=== PATIENT | female | born 1945 | race Caucasian/White ===

== ENCOUNTER 2017-04-18 19:15 | Emergency (ER) | payer MEDICARE ==
[2017-04-18 21:48] VITALS: BP 159/85
--- NOTE | 2017-04-18 22:23 | UC ---
Eye Complaint HPI - HPI Summary HPI Summary: 70 yo WF c/o B/L, extreme eyelid ithchiness, left>right since this AM. Denies new lotions makeup soaps foods or touching novel surfaces or allergies, has h/o eczema - History of Current Complaint Chief Complaint: UCEye Stated Complaint: EYE COMPLAINT Time Seen by Provider: 04/18/17 21:19 Hx Obtained From: Patient Onset/Duration: Sudden Onset Timing: Constant Severity Initially: Severe Pain Intensity: 0 Aggravating Factor(s): Nothing Alleviating Factor(s): Other - benadryl antiitch topical spray - Allergies/Home Medications Allergies/Adverse Reactions: Allergies Allergy/AdvReac Type Severity Reaction Status Date / Time clarithromycin [From Biaxin] Allergy Unknown Verified 04/18/17 19:43 Reaction Details morphine Allergy Nausea And Verified 04/18/17 19:43 Vomiting PMH/Surg Hx/FS Hx/Imm Hx - Additional Past Medical History Additional PMH: eczema Previously Healthy: Yes - Surgical History Surgical History: Yes Surgery Procedure, Year, and Place: 1994 & 2009 Bunion [facility] RT FOOT [facility]. 1987 knees (injury related). Tonsils. 1982 Tubal ligation [facility] - Social History Alcohol Use: Weekly Alcohol Amount: 2-3 GLASSES/WEEK Substance Use Type: None Smoking Status (MU): Never Smoked Tobacco Have You Smoked in the Last Year: No - Immunization History Most Recent Tetanus Shot: unknown Review of Systems Constitutional: Negative Skin: Negative Eyes: Other - eyelid itchiness and swelling on left>right ENT: Negative Respiratory: Negative Cardiovascular: Negative Gastrointestinal: Negative Genitourinary: Negative Motor: Negative Neurovascular: Negative Musculoskeletal: Negative Neurological: Negative Psychological: Negative Is Patient Immunocompromised?: No All Other Systems Reviewed And Are Negative: Yes Physical Exam Triage Information Reviewed: Yes Appearance: Well-Appearing Vital Signs: Initial Vital Signs Temp 36.8 C 04/18/17 19:40 Pulse 82 04/18/17 19:40 Resp 18 04/18/17 19:40 BP 165/91 04/18/17 19:40 Pulse Ox 98 04/18/17 19:40 Eye Exam: Normal Eyes: Positive: Other: - B/L left upper lid swellling > right with exquisite pruritis NO drainage or signs of infection ENT Exam: Normal Dental Exam: Normal Neck exam: Normal Neck: Positive: 1 Respiratory Exam: Normal Cardiovascular Exam: Normal Abdominal Exam: Normal Musculoskeletal Exam: Normal Neurological Exam: Normal Psychological Exam: Normal Skin Exam: Normal Eye Complaint Course/Dx - Course Course Of Treatment: B/L eyelid pruritis, advised allergy consult if sx persist - Differential Dx/Diagnosis Provider Diagnoses: eyelid pruritis Discharge - Discharge Plan Condition: Stable Disposition: HOME Prescriptions: Neomycin/Polymyxin B/Dexametha [Maxitrol] 1 oin OP Q8HR 7 Days #1 tube Patient Education Materials: Allergy Testing (ED) Referrals: Ernestina Moe NP [Primary Care Provider] - Additional Instructions: 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
== END 2017-04-18 22:28 | disposition home or self-care (01) ==
LOC: UCEAST 19:15
DX: L29.9 Pruritus, unspecified (principal)
CPT/HCPCS: 99212; G0463

== ENCOUNTER 2017-04-19 09:57 | Emergency (ER) | payer MEDICARE ==
[2017-04-19] MEDS ORDERED: methylPREDNISolone 125 MG* 2 ML VIAL IV ONE (12:46)
[2017-04-19] MEDS ORDERED: diPHENhydraMINE IV* 50 MG/ML 1 ml VIAL (BENADRYL) IV ONE (12:46)
[2017-04-19] MEDS ORDERED: PROCHLORPERAZINE INJ 5 MG/ML 2 ML VIAL IV ONE (12:46)
[2017-04-19] MEDS ORDERED: NS 0.9% 1000 ML* 1,000 ML IV ONE (12:46)
[2017-04-19] MEDS ORDERED: Ketorolac INJ* 30 MG/ML 1 ML VIAL IV PUSH ONE (12:56)
[2017-04-19 13:08] LABS: ABS Basophils 0 10^3/ul (0-0.2); ABS Eosinophils 0.1 10^3/ul (0-0.6); ABS Lymphocytes 1.2 10^3/ul (1.0-4.8); ABS Monocytes 0.4 10^3/ul (0-0.8); ABS Neutrophils 5.2 10^3/ul (1.5-7.7); ABS Nucleated RBC 0 10^3/ul; Eosinophil % 1.9 % (0-6); Hematocrit 47 % (35-47); Mean Corpuscular HGB Conc 35 g/dl (31-36); Mean Corpuscular Hemoglobin 31 pg (27-31); Mean Corpuscular Volume 90 fL (80-97); Mean Platelet Volume 8 um3 (7.4-10.4); Nucleated Red Blood Cells % 0; Platelet Count 222 10^3/ul (150-450); Red Blood Count 5.16 10^6/ul (4.0-5.4); Red Cell Distribution Width 14 % (10.5-15); White Blood Count 6.9 10^3/ul (3.5-10.8)
[2017-04-19 13:32] LABS: EGFR Non-African American 101.9 (>60)
--- NOTE | 2017-04-19 15:30 | ED ---
Skin Complaint - HPI Summary HPI Summary: Pt here w/ facial redness and swelling that started as a small area around Lt eye yesterday and has expanded across her face and into neck today. Pruritic. No known cause. No anaphylacytic sx/ - History of Current Complaint Chief Complaint: EDEyeProblem Time Seen by Provider: 04/19/17 11:08 Stated Complaint: EYE SWELLING Pain Intensity: 0 - Allergy/Home Medications Allergies/Adverse Reactions: Allergies Allergy/AdvReac Type Severity Reaction Status Date / Time clarithromycin [From Biaxin] Allergy Unknown Verified 04/18/17 19:43 Reaction Details morphine Allergy Nausea And Verified 04/18/17 19:43 Vomiting PMH/Surg Hx/FS Hx/Imm Hx Endocrine/Hematology History: Reports: Hx Anemia - TAKING IRON SUPPLEMENT DAILY FOR YEARS Denies: Hx Diabetes, Hx Thyroid Disease Cardiovascular History: Denies: Hx Hypertension, Hx Pacemaker/ICD Respiratory History: Denies: Hx Asthma, Hx Chronic Obstructive Pulmonary Disease (COPD) GI History: Denies: Hx Ulcer Musculoskeletal History: Reports: Hx Arthritis - RT WRIST,, Hx Osteoporosis Sensory History: Reports: Hx Contacts or Glasses - CONTACTS, WILL WEAR GLASSES DAY OF SURGERY Denies: Hx Hearing Aid Opthamlomology History: Reports: Hx Contacts or Glasses - CONTACTS, WILL WEAR GLASSES DAY OF SURGERY Psychiatric History: Denies: Hx Panic Disorder - Surgical History Surgery Procedure, Year, and Place: 1994 & 2009 Bunion [facility] RT FOOT [facility]. 1987 knees (injury related). Tonsils. 1982 Tubal ligation [place] Hx Anesthesia Reactions: No Infectious Disease History: No Infectious Disease History: Denies: Hx Clostridium Difficile, Hx Hepatitis, Hx Human Immunodeficiency Virus (HIV), Hx of Known/Suspected MRSA, Hx Shingles, Hx Tuberculosis, Traveled Outside the [place] in Last 30 Days - Social History Alcohol Use: Weekly Alcohol Amount: 2-3 GLASSES/WEEK Substance Use Type: Reports: None Smoking Status (MU): Never Smoked Tobacco Have You Smoked in the Last Year: No Physical Exam Vital Signs On Initial Exam: Initial Vitals Temp Pulse Resp BP Pulse Ox 97.9 F 84 18 120/81 100 04/19/17 09:58 04/19/17 09:58 04/19/17 09:58 04/19/17 09:58 04/19/17 09:58 Diagnostics - Vital Signs Vital Signs Temp Pulse Resp BP Pulse Ox 04/19/17 09:58 97.9 F 84 18 120/81 100 - Laboratory Lab Results: Lab Results 04/19/17 04/19/17 04/19/17 Range/Units 12:55 12:55 12:55 WBC 6.9 (3.5-10.8) 10^3/ul RBC 5.16 (4.0-5.4) 10^6/ul Hgb 16.0 (12.0-16.0) g/dl Hct 47 (35-47) % MCV 90 (80-97) fL MCH 31 (27-31) pg MCHC 35 (31-36) g/dl RDW 14 (10.5-15) % Plt Count 222 (150-450) 10^3/ul MPV 8 (7.4-10.4) um3 Neut % (Auto) 74.3 (38-83) % Lymph % (Auto) 18.0 L (25-47) % [place] % (Auto) 5.4 (1-9) % Eos % (Auto) 1.9 (0-6) % Baso % (Auto) 0.4 (0-2) % Absolute Neuts (auto) 5.2 (1.5-7.7) 10^3/ul Absolute Lymphs (auto) 1.2 (1.0-4.8) 10^3/ul Absolute Monos (auto) 0.4 (0-0.8) 10^3/ul Absolute Eos (auto) 0.1 (0-0.6) 10^3/ul Absolute Basos (auto) 0 (0-0.2) 10^3/ul Absolute Nucleated RBC 0 10^3/ul Nucleated RBC % 0 ESR 8 (0-40) mm/Hr Sodium 140 (133-145) mmol/L Potassium 3.5 (3.5-5.0) mmol/L Chloride 102 (101-111) mmol/L Carbon Dioxide 30 (22-32) mmol/L Anion Gap 8 (2-11) mmol/L BUN 10 (6-24) mg/dL Creatinine 0.58 (0.51-0.95) mg/dL Est GFR ( Amer) 131.1 (>60) Est GFR (Non-Af Amer) 101.9 (>60) BUN/Creatinine Ratio 17.2 (8-20) Glucose 99 (70-100) mg/dL Lactic Acid 1.2 (0.5-2.0) mmol/L Calcium 9.8 (8.6-10.3) mg/dL Total Bilirubin 0.50 (0.2-1.0) mg/dL AST 29 (13-39) U/L ALT 22 (7-52) U/L Alkaline Phosphatase 34 (34-104) U/L C-Reactive Protein < 1.00 (< 5.00) mg/L Total Protein 7.2 (6.4-8.9) g/dL Albumin 4.7 (3.2-5.2) g/dL Globulin 2.5 (2-4) g/dL Albumin/Globulin Ratio 1.9 (1-3) Result Diagrams: 04/19/17 12:55 04/19/17 12:55 Lab Statement: Any lab studies that have been ordered have been reviewed, and results considered in the medical decision making process. Discharge - Discharge Plan Condition: Stable Disposition: HOME Prescriptions: EPINEPHrine [Epipen 2-Jamshid] 0.3 mg IM ONCE PRN #1 inj PRN Reason: Allergy Symptoms methylPREDNISolone [Medrol Dosepak 4 MG*] 4 mg PO .SEE JAMSHID INSTRUCTION #1 jamshid Patient Education Materials: Urticaria (ED), Acute Rash (ED) Referrals: Ernestina Moe NP [Primary Care Provider] - Additional Instructions: You appear to be having an allergic skin reaction today. You have been given steroids and benadryl today. Steroids will be continued for you while you are at home - please pick them up at your pharmacy and complete course. You may also continue benadryl 50mg every 6 hours for itching, swelling. Stay hydrated with plenty of water, etc. Follow-up with medical provider tomorrow or PCP Friday. *If you develop shortness of breath, throat swelling/tightness, inject your epi pen into your thigh once and go to the nearest ED or call 911.
[2017-04-19 16:01] VITALS: BP 120/76
== END 2017-04-19 15:59 | disposition home or self-care (01) ==
LOC: ED 09:57
DX: R22.0 Localized swelling, mass and lump, head (principal); R23.8 Other skin changes; L29.9 Pruritus, unspecified; Z88.3 Allergy status to other anti-infective agents; Z88.5 Allergy status to narcotic agent
CPT/HCPCS: 36415; 80053; 83605; 85025; 85652; 86140; 96361; 96374; 96375; 99283; J0780; J1200; J1885; J2930